=== PATIENT | female | born 1980 | race American Indian/Alaskan Native ===

== ENCOUNTER 2019-02-13 09:31 | Emergency (ER) | payer MEDICAID ==
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
[2019-02-13] MEDS ORDERED: NORCO 5/325 PO ONE (12:11)
[2019-02-13 12:51] LABS: Bacteria,Urine 1+ /HPF (Negative); Bilirubin,Urine NEG (Negative); Blood,Urine NEG (Negative); Color,Urine Yellow (Yellow); Mucus,Urine 1+ /HPF; Protein,Urine <15 mg/dL mg/dL (Negative); Urobilinogen,Urine < 2.0 mg/dL (<2.0)
[2019-02-13 12:55] LABS: HCG Qualitative,Urine Negative (Negative)
--- NOTE | 2019-02-13 13:56 | XRay Report ---
LEFT SHOULDER, 3 views: History: Pain. Routine views demonstrate normal bony and soft tissue structures with normal joint alignment of the shoulder. IMPRESSION: Normal study.
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
[2019-02-13 14:43] VITALS: BP 130/70
== END 2019-02-13 14:42 | disposition home or self-care (01) ==
LOC: ED 09:31
DX: S46.912A Strain of unspecified muscle, fascia and tendon at shoulder and upper arm level, left arm, initial encounter (principal); S00.12XA Contusion of left eyelid and periocular area, initial encounter; F17.200 Nicotine dependence, unspecified, uncomplicated; F12.10 Cannabis abuse, uncomplicated; Y04.8XXA Assault by other bodily force, initial encounter; Y93.89 Activity, other specified; Y92.098 Other place in other non-institutional residence as the place of occurrence of the external cause; Y99.8 Other external cause status
CPT/HCPCS: 70450; 70486; 72125; 81001; 81025; 99284